=== PATIENT | male | born 1990 | race Caucasian/White ===

== ENCOUNTER 2018-04-15 13:32 | Outpatient (CLI) | payer OTHER | END 2018-04-15 13:33 | disposition home or self-care (01) | LOC: SC 13:32 | PROVIDERS: ATTEND Internal Medicine Pulmonary Disease | DX: G47.33 Obstructive sleep apnea (adult) (pediatric) (principal) | CPT/HCPCS: 99203; 99212 ==

== ENCOUNTER 2018-12-24 12:45 | Outpatient (CLI) | payer OTHER | END 2018-12-24 12:46 | disposition home or self-care (01) | LOC: SC 12:45 | PROVIDERS: ATTEND Nurse Practitioner Family | DX: G47.33 Obstructive sleep apnea (adult) (pediatric) (principal); G47.53 Recurrent isolated sleep paralysis | CPT/HCPCS: 99212; 99215 ==

== ENCOUNTER 2019-03-18 13:32 | Outpatient (CLI) | payer OTHER | END 2019-03-18 13:33 | disposition home or self-care (01) | LOC: SC 13:32 | PROVIDERS: ATTEND Nurse Practitioner Family | DX: G47.33 Obstructive sleep apnea (adult) (pediatric) (principal) | CPT/HCPCS: 99212; 99215 ==

== ENCOUNTER 2020-08-30 13:30 | Outpatient (CLI) | payer OTHER ==
--- NOTE | 2020-08-30 14:23 | SLEEP CARE CONSULTATION ---
Information from patient questionnaire entered by Elio Ayers. I have reviewed and concur with the information entered by Elio Ayers. This document represents the service I personally performed and the decisions made by me, Gayle Valdes ARNP. History of Present Illness Service Date and Time: 08/30/2020 1330 Previous diagnosis: Mild, Obstructive Sleep Apnea-Hypopnea Syndrome AHI: 11.3 Reason for follow up: annual (last seen 03/2019) Equipment type: CPAP Equipment obtained from: [facility] [employer] (getting supplies as needed) Mask style: Full face Mask brand: Resmed (Airtouch [id number]) Backup mask available: Yes (old mask) Last cushion change: 3-4 nights ago Year and Where: [address] [place] [address] Sleep Lab Type of Sleep Study: Polysomnography HPI additional information: ÁLVARO CUTLER was diagnosed to have mild, AHI 11.3, obstructive sleep apnea- hypopnea syndrome and returned today for CPAP therapy annual follow-up. CPAP Compliance Data - Data Reviewed with Patient Average duration of nightly device use: 6 h 5 min Compliance rate %: 83.3 Current pressure setting (cmH2O): 10-13 Humidity settin Average residual AHI: 3.8 Average large leak: 6 min 26 sec Subjective Missed days of use due to: reports: illness (sinus infections), other (doing homework until 2 am) Patient concerns: reports: nasal congestion, dry mouth, nose, throat (machine using water but is still gettgin dry mouth). denies: aerophagia, mask discomfort, air blowing in eyes, mask leak noise, condensation in mask/hose, epistaxis, other Observed to snore while using device: No Current pressure setting perceived as: too low On therapy, patient: reports: sleeping better, awakening more refreshed, being more awake and alert during the day, more rested overall. denies: drowsiness while driving Initial [place] Sleepiness Scale score: 13 (in 2018) Current [place] Sleepiness Scale score: 12 Allergies and Home Medications Drug allergies reviewed: Yes (NKDA) Home medication list reviewed: Yes Allergy and home medication list: flonase claratin or zyrtec, as needed Review of Systems Review of systems same as previous: No (GI bleed November 2018, had colonoscopy at that time) Physical Exam Heart Rate: 76 O2 Saturation: 98 Height: 5 ft 3 in Weight: 164 lb Body Mass Index: 29.0 BMI Classification: Overweight Impression and Plan 1. Obstructive Sleep Apnea-Hypopnea Syndrome, mild, with good treatment compliance and good apnea control. On CPAP therapy, the patient has better sleep quality and is more rested overall. He has had some issues with falling asleep on the couch and not getting his CPAP on. I advised him to set an alarm to remind him about bedtime and this can wake him up to go to bed and put on the CPAP machine. He has his humidity setting at 4 but is still getting some oral dryness. He states the machine seems to be using the water but his mouth is dry. He does not have the heated hose function going. Oral dryness can be reduced by adjusting humidity setting higher or heated hose lower or by adjusting both settings. Printed instructions given on how to change humidity and heated hose settings with rationale explaining why to change. Patient advised that chronic oral dryness can affect dental health and advised to follow up with dentist. In addition, there are oral dryness products that can be used to reduce dryness such as Biotene products, Dry mouth rinse and Xylomelts. Patient to discuss best option with dentist. I will have his machine serviced to check for any malfunctioning of the humidity. He has also felt the pressure is a little low and is still having some daily sleepiness. I will adjust his pressure to 12-14 cm H2O and have him follow up to check for improvements. Patient's apnea severity and rationale for treatment to reduce apnea, improve sleep quality and reduce cardiovascular and cerebrovascular events was reviewed. * [employer] CPAP pressure to 12-14 cmH2O * Service machine to check for malfunctioning of humidity * Notify me if snoring with mask or feeling that the pressure is too much or too little * Attempt to lose weight * Call this office if any problems using CPAP * Return for follow up in 1-2 months1 , or sooner if concerns arise Counseling Topics: Spare mask, Weight loss health impact Visit Type: In Office Time Spent with Patient (minutes): 31 Provider Statement: I spent 100% of the Face to Face Visit with the patient with greater than 50% spent counseling the patient and coordination of care.
== END 2020-08-30 13:31 | disposition home or self-care (01) ==
LOC: SC 13:30
PROVIDERS: ATTEND Nurse Practitioner Family
DX: G47.33 Obstructive sleep apnea (adult) (pediatric) (principal); E66.3 Overweight; Z68.29 Body mass index [BMI] 29.0-29.9, adult
CPT/HCPCS: 99212; 99213